=== PATIENT | male | born 1980 | race Caucasian/White ===

== ENCOUNTER 2023-09-16 14:38 | Emergency (ER) | payer SELFPAY ==
[2023-09-16] MEDS ORDERED: Amoxicillin/Potassium Clav 875 MG TAB ONE (15:14)
== END 2023-09-16 15:16 | disposition home or self-care (01) ==
LOC: NAV ERS 14:38
DX: K04.7 Periapical abscess without sinus (principal); F17.210 Nicotine dependence, cigarettes, uncomplicated
CPT/HCPCS: 99283

== ENCOUNTER 2024-02-14 03:32 | Emergency (ER) | payer SELFPAY ==
[2024-02-14] MEDS ORDERED: Sodium Chloride 0.9% 1,000 ML ONE (03:48)
[2024-02-14] MEDS ORDERED: Morphine 4 MG/ML VIAL ONE ×2 (03:48→05:54)
[2024-02-14] MEDS ORDERED: Ondansetron PF 4 MG/2 ML Vial ONE (03:48)
[2024-02-14 03:52] LABS: #Lymphocytes 2.5 thou/uL (1.20-3.40); #Neutrophils 8.8 thou/uL (1.40-6.50); %Basophils 0.4 % (0.0-1.0); %Eosinophils 0.3 % (0.0-10.0); %Lymphocytes 20.1 % (21.0-51.0); %Neutrophils 71.2 % (42.0-75.0); Hematocrit 48.6 % (42.0-52.0); Hemoglobin 17.1 g/dL (14.0-18.0); Mean Corpuscular HGB CONC 35.1 g/dL (32.0-36.0); Mean Corpuscular Volume 91.3 fl (78.0-98.0); Mean Platelet Volume 7.6 fL (7.4-10.4); Platelet Count 247 10x3/uL (130-400); RBC Distribution Width 11.3 % (11.5-14.5); Red Blood Cell (RBC) Count 5.33 mill/uL (4.70-6.10); White Blood Cell (WBC) Count 12.3 10x3/uL (4.8-10.8)
[2024-02-14 03:59] LABS: Prothrombin Time 13.1 sec (12.0-14.7)
[2024-02-14 04:00] LABS: PTT 22.9 sec (22.9-36.1)
[2024-02-14 04:04] LABS: Acetaminophen Less than 10 mcg/mL (10.0-30.0); Alcohol 67.7 mg/dL (Less than 10); Salicylate Less than 8.0 mg/dL (15.0-30.0)
[2024-02-14 04:09] LABS: ALT (SGPT) 43 U/L (8-55); AST (SGOT) 39 U/L (5-34); Albumin 4.6 g/dL (3.5-5.0); Alkaline Phosphatase 55 U/L (40-110); Anion Gap 20 mmol/L (10-20); BUN (Urea Nitrogen) 7 mg/dL (8.9-20.6); Bilirubin, Total 0.9 mg/dL (0.2-1.2); Calc. Creatinine Clearance 0 mL/min (70-130); Carbon Dioxide 18 mmol/L (22-29); Chloride 105 mmol/L (98-107); Estimated GFR 66; Globulin 3.5 g/dL (2.4-3.5); Glucose 124 mg/dL (70-105); Potassium 3.9 mmol/L (3.5-5.1); Protein, Total 8.1 g/dL (6.0-8.3); Sodium 139 mmol/L (136-145)
[2024-02-14] MEDS ORDERED: fentaNYL 50 mcg/mL 1 mL Vial ONE ×3 (04:30→07:32)
[2024-02-14] MEDS ORDERED: Pantoprazole 40 MG VIAL ONE (05:54)
[2024-02-14] MEDS ORDERED: Ketorolac Tromethamine 30 MG (1 mL) VIAL ONE (07:33)
[2024-02-14] MEDS ORDERED: Iopamidol 370 76% 100 ML VIAL ONE (09:00)
== END 2024-02-14 08:40 | disposition short-term general hospital (02) ==
LOC: NAV ERS 03:32
DX: S22.42XA Multiple fractures of ribs, left side, initial encounter for closed fracture (principal); S42.002A Fracture of unspecified part of left clavicle, initial encounter for closed fracture; S27.329A Contusion of lung, unspecified, initial encounter; S20.412A Abrasion of left back wall of thorax, initial encounter; S40.212A Abrasion of left shoulder, initial encounter; F17.210 Nicotine dependence, cigarettes, uncomplicated; F17.220 Nicotine dependence, chewing tobacco, uncomplicated; V86.06XA Driver of dirt bike or motor/cross bike injured in traffic accident, initial encounter
CPT/HCPCS: 70460; 71260; 72125; 74177; 80053; 80307; 85025; 85610; 85730; 96374; 96375; 96376; J1885; J2272; J2405; J2470; J2919; J3010; Q9967